=== PATIENT | male | born 1960 | race Caucasian/White ===

== ENCOUNTER 2018-05-22 08:15 | Outpatient (RCR) | payer SELFPAY ==
[2015-11-19 12:24] VITALS: BMI 24.4
[~2018-05-22 08:15] MED LIST: ACE3 PO; ACYC-50 PO; ASPI-1471 PO; CLO10 MT; CLOTRIMAZOLE PO; DOCU-202 PO; DOCU-416 PO; FLUC200T52 PO; FLUC200T56 PO; HYDR2TAB4 PO; IBUP200C71 PO; IBUP600T22 PO; LORA-1456 PO; MULT1TAB54 PO; MULT1TAB64 PO; OMEG500C5 PO; PER PO; PRED50TA22 PO; PROC10TA4 PO; PROM-110 PO
[2018-05-22 08:19] VITALS: BP 138/85
--- NOTE | 2018-05-22 10:24 | Oncology Note ---
EVALUATION~DATE~& TIME: 05/22/2018 PRIMARY CARE PHYSICIAN: None, pt. is self employed has no insurance LAST SEEN BY DR. Watson on 11/22/2017 ACCOMPANIED BY: self Chief complaint: F/u on DLBC lymphoma DIAGNOSIS: stage II Diffuse large B-cell lymphoma Oncology History - August 10, 2015 newly diagnosed diffuse large B cell lymphoma, likely ABC subtype Baseline echocardiogram: Sinus rhythm with frequent premature ventricular complexes Rightward axis Borderline ECG No previous ECGs available Confirmed by OSCAR PETERS ([id number]) on 08/17/2015 9:24:51 PM August 18, 2015 SURGEON: Thomas Jj MD Bone marrow aspirate. 2. Bone core biopsy. 3. Right shoulder lipoma A 10 mm flat Hank-Cameron drain was placed in the cavity left behind after excising the right shoulder lipoma. port placement, unilateral bone marrow biopsy, PET scan in [facility] He completed R-Chop x 6 cycles between 09-01-15 to 12-22-15. with curative intent He completed a PET scan on 01-23-16 which showed a complete response to treatment with no metabolic activity. His spleen had decreased in size and numerous fractures were healing. HPI Mr. Junior is a very pleasant 57 year old man who has stage II Diffuse large B -cell lymphoma, status post 6 cycles of R CHOP in December 2015 . Overall patient reports that he is feeling very well he denies any B- symptoms such as drenching night sweats, fatigue, or palpable lymph nodes. 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 no weight loss or weight gain. Patient informs me that he is currently completing a 14 day course of antibiotics for a tooth extraction procedure planned in the near future, he reports antibiotic being keflex. Living conditions: lives alone, 2 children are his support system Diagnostic tests & Reports Reviewed on [employer] PAST MEDICAL/SURGICAL HISTORY FAMILY~HISTORY: [place] (myocardial infarction) FATHER, and uncle , Age:55 Psychosocial History Social History Patient is single, , has two children a 35 year old daughter and a 32 year old son. Occupational History He works as a contractor independent. He has high-intensity work working 7 days a week. Alcohol History He denies use Smoking History: 1pack day since 27 years old Smoking Status: Yes, less than 1 pack per day Medications and Allergies Reported Medications Aspirin (Aspir 81)81 Mg Tablet.dr81 Mg PO QDAY 02/12/17 Multivitamin (Multi-Vitamin Daily)1 Each Tablet1 Each PO 08/24/15 [place]-3 Fatty Acids (Fish Oil)Unknown Strength Capsule.Unknown Dose PO 08/03/15 Allergies: Coded Allergies: Penicillins (Verified Allergy, Unknown, 11/18/15) SOCIAL /OCCUPATION HISTORY: PREVENTIVE: tetanus vaccine 2017 (reported) -Colonoscopy. Not on file MEDICATIONS: Reported Medications Aspirin (Aspir 81)81 Mg Tablet.dr81 Mg PO QDAY 02/12/17 Multivitamin (Multi-Vitamin Daily)1 Each Tablet1 Each PO 08/24/15 [place]-3 Fatty Acids (Fish Oil)Unknown Strength Capsule.dUnknown Dose PO 08/03/15 Keflex for pre-op preparation tooth extraction 05/22/18 ALLERGIES: Penicillins (Verified Allergy, Unknown, 05/22/18) Review of System CONSTITUTION: denies fevers, sweats, change in appetite, energy, or weight EYES: No blurred vision, no double vision ENT: no mouth soreness, trouble swallowing, neck masses RESPIRATORY: Denies pleuritic pain, dyspnea, wheezing, coughing CARDIOVASCULAR: Denies cardiac type chest pain, palpitations, leg edema GI: denies trouble swallowing, indigestion, abdominal pain, diarrhea, constipation, blood in stool : No blood in the urine, no urinary urgency/frequency, no dysuria, no MUSCULOSKELETAL: no joint pain, no muscle pain, no limited ROM, no back pain NEURO: denies headaches, dizziness, neuropathy, focal weakness SKIN: denies bruising, rashes, changing or suspicious lesions, HEMATOLOGY: denies spontaneous bleeding, denies non-palpable nodes PSYCH: denies mood changes, depression, anxiety Physical Exam Vital Signs Temperature: 97.8 Pulse: 91 BP Systolic: 13 BP Diastolic: 8 Respiratory Rate: 16 O2 SAT: 94% RA O2 Delivery: Height (inches) 69.00 Weight lb: 165 Weight oz: Weight Kg (Venkat): Pain: 0 VITALS PERFORMANCE STATUS: ECOG O- fully active, able to carry on all pre-disease performance w/o restriction GENERAL: pleasant conversant, male in no apparent distress ORAL: mucosa moist without lesions, pharynx not injected EYES: no icterus, no pale conjunctivae, EOMI, PERRLA NECK: supple, no masses, no palpable lymph nodes LUNGS: clear to auscultation bilaterally, breathing, non-labored CVS: regular rate, rhythm, nl s1, s2, no murmurs ABD: normal bowel sounds, soft non tender, non-distended, no hepatomegaly, no splenomegaly, no masses EXTREMITIES: no edema, no cyanosis MUSCULOSKELETAL: grossly normal gait, range of motion stable NEURO: alert, appropriate, motor grossly normal, sensory grossly non focal, and cranial nerves grossly intact NODES: no cervical, supraclavicular, axillary, inguinal adenopathy SKIN: no ecchymosis, petechiae, no open wounds, no itchiness. PSYCH: normal mood and affect, good judgment and insight. Assessment & Plan Mr. Junior is a very pleasant 57 year old man who has stage II Diffuse large B -cell lymphoma, status post 6 cycles of R CHOP in December 2015 . PET scan shows disease in remission. WBC : 8.9; HGB 18.5; ANC5.1; uric acid 6.1; there was no LDH value data. 1. F/u in 6 months with MD/ALEJANDRA with CBC w/diff, CMP. LDH 2. Hypertriglyceridemia labs on 05/15/18 show Tr of 188. TLC teaching provided to patient, to cut amount of cheese, summer sausage, increase fruit, vegetables , and water intake. 3. Patient is due for Colonoscopy, he never had one at 57 years old 4. Monitor Triglycerides levels with next labs 5. patient to call cancer center with any issues or concerns TIME SPENT: 15 minutes > 10 minutes includes but not limited to discussion, counselling and co-ordination~ of care. Discussion with other health care providers, record review, review of lab work, diagnostic tests. Plan discussed extensively with patient. All the questions answered today. Thank you for the opportunity to be involved in the care of Mr. Junior. Billing Level: Return visit 3 BREN JIMENEZ, ONC May 22, 2018 10:23
== END 2018-05-23 09:22 | disposition home or self-care (01) ==
LOC: ONC 08:15
PROVIDERS: ATTEND Nurse Practitioner Family
DX: Z85.72 Personal history of non-Hodgkin lymphomas (principal)
CPT/HCPCS: 99212

== ENCOUNTER 2018-11-17 08:19 | Outpatient (RCR) | payer SELFPAY ==
[2015-11-19 12:24] VITALS: Wt 80.0 kg
[~2018-11-17 08:19] MED LIST changes: +IBUP-136 PO; -IBUP200C71 PO
[2018-11-17 08:27] VITALS: BP 124/79
--- NOTE | 2018-11-17 13:53 | [facility] ONCOLOGY NOTE ---
EVENT DATE: November 17, 2018 CHIEF COMPLAINT/REASON FOR VISIT Mr. Junior is a pleasant 58-year-old gentleman with stage II diffuse large B- cell lymphoma, status post six cycles of R-CHOP, finishing in December 2015 that returns for followup. HISTORY OF PRESENT ILLNESS Jordon returns. He finished R-CHOP chemotherapy in December 2015 and his post- treatment PET scan showed complete remission. He continues to do well. His energy is excellent and he continues to work full-time. He has gained a little bit of weight and has maintained this. No concerning lumps or bumps, fevers, chills, night sweats or other symptoms today. No GI symptoms of concern. PAST MEDICAL HISTORY, PAST SURGICAL HISTORY Diffuse large B cell lymphoma likely stage II, likely ABC subtype, diagnosed July 2015. Treatment with curative intent was R-CHOP x6. ALLERGIES PENICILLIN. MEDICATIONS 1. Aspirin 18 mg daily. 2. Multivitamin. SOCIAL HISTORY The patient is single. He works as a contractor. High intensity work, working seven days a week. He is booked out over a year in advance. FAMILY HISTORY Noncontributory. REVIEW OF SYSTEMS CONSTITUTIONAL: No fevers, chills or weight change that is unintentional. HEENT: No headache or vision changes. CARDIOVASCULAR: No chest pain, palpitations, dyspnea on exertion or edema. RESPIRATORY: No shortness of breath, wheeze or cough. GASTROINTESTINAL: No nausea, vomiting, diarrhea. GENITOURINARY: No dysuria or hematuria. MUSCULOSKELETAL: No weakness or joint pain. PSYCHIATRIC: No anxiety or depression. ENDOCRINE: No heat or cold intolerance. LYMPHATIC: No concerning lumps or bumps. HEMATOLOGIC: No bleeding or other concerns. SKIN: No concerning rashes or other lesions. PHYSICAL EXAMINATION VITAL SIGNS: Blood pressure 124/79, pulse 85, respiratory rate 16, temperature 97.6 Fahrenheit, oxygen saturation 94% on room air. Weight 80 kg, which is stable from last year. Pain 0/10, fatigue 0/10. GENERAL: In stable condition, resting comfortably in the chair. HEENT: Normocephalic, atraumatic. LYMPHATIC: No appreciable cervical, supraclavicular or axillary adenopathy. CARDIOVASCULAR: Regular rate and rhythm. . LUNGS: Clear to auscultation bilaterally. ABDOMEN: Soft, nontender, nondistended. No organomegaly or masses. EXTREMITIES: No clubbing, cyanosis or edema. SKIN: No concerning findings. The remainder of the physical exam is otherwise unremarkable today. IMPRESSION AND PLAN Mr. Junior is a pleasant 58-year-old gentleman with the following: Stage II diffuse large B cell lymphoma, likely aggressive subtype ABC by pathology. He completed six cycles of R-CHOP in December 2015. We would like to see him every six months with labs until year five and then annually after that. Imaging only as needed for concerning findings or history. There are no such findings and so imaging is required this month. I answered all of his questions today. He is doing quite well. Billing: Return visit level 3. Total time 20 minutes, counseling time 15. MTDD
== END 2019-01-05 12:04 | disposition home or self-care (01) ==
LOC: ONC 08:19
PROVIDERS: ATTEND Internal Medicine
DX: C83.30 Diffuse large B-cell lymphoma, unspecified site (principal); D58.2 Other hemoglobinopathies; Z79.82 Long term (current) use of aspirin; Z92.21 Personal history of antineoplastic chemotherapy
CPT/HCPCS: 99212

== ENCOUNTER 2019-05-11 08:30 | Outpatient (RCR) | payer SELFPAY ==
[2015-11-19 12:24] VITALS: BMI 24.4
[2019-05-11 08:33] VITALS: BP 137/80
--- NOTE | 2019-05-12 05:13 | ONCOLOGY FOLLOW UP NOTE ---
EVENT DATE: May 11, 2019 CHIEF COMPLAINT Followup for stage II diffuse large B-cell lymphoma. HISTORY OF PRESENT ILLNESS Patient is a 58-year-old male who is seen today in six-month followup. Overall, he feels well. He has had no B symptomatology, including no night sweats, excessive fatigue, or unexplained weight loss. He continues to work 10 to 12 hours a day, seven days a week, which has been difficult, but he feels he is managing. He denies any other new complaints. ONCOLOGY HISTORY Patient was diagnosed with diffuse large B-cell lymphoma. He completed six cycles of R-CHOP chemotherapy in December 2015. Post-treatment PET scan showed complete remission. PAST MEDICAL HISTORY Diffuse large B-cell lymphoma, July 2015. SOCIAL HISTORY Patient is single. 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 He smokes cigarettes but is trying to cut back. FAMILY HISTORY Noncontributory. MEDICATIONS 1. Aspirin 81 mg daily. 2. Multivitamin. ALLERGIES PENICILLIN. REVIEW OF SYSTEMS A 12-point review of systems is performed and is negative except as stated above. PHYSICAL EXAMINATION VITAL SIGNS: Weight 173 pounds, BP 137/80, P 76, R 16, temperature 98.1, O2 saturation 94%. GENERAL: Patient is a well-developed, well-nourished male in no acute distress. HEAD: Normocephalic, atraumatic. EYES: Sclerae anicteric. MOUTH: Moist mucous membranes. NECK: Supple. No palpable adenopathy. LUNGS: Slightly diminished bilaterally but clear. CARDIOVASCULAR: Heart rate regular, 76 per minute, without murmur, S3 or S4. ABDOMEN: Soft, nontender, with active bowel sounds. No organomegaly. EXTREMITIES: No edema. NEURO: Nonfocal. LABORATORY CBC on 05/07/19 showed a WBC of 7.0, hemoglobin 18.9, hematocrit 56.7, platelets 169,000. CMP was within normal limits. Immunoglobulins showed a slightly diminished IgG of 465. IMPRESSION The patient is a 58-year-old male who was diagnosed with stage II diffuse large B-cell lymphoma in July 2016. He completed chemotherapy with six cycles of R- CHOP in December 2015 with no evidence of recurrence. 1. Lymphoma. No signs or symptoms of disease recurrence. He feels very well and has no B symptomatology. 2. Smoking cessation. We discussed this. He has been trying to cut back. He did not find that the patch was very helpful. 3. Erythrocytosis. Hemoglobin is slightly elevated at 18.9. He relates that he has had to donate blood previously[place]. We will continue to monitor. 4. Follow up in six months for continued care. CBC, CMP, LDH, and immunoglobulins will be drawn before that visit. KISHAN
== END 2019-06-01 14:53 | disposition home or self-care (01) ==
LOC: ONC 08:30
PROVIDERS: ATTEND Internal Medicine
DX: Z85.72 Personal history of non-Hodgkin lymphomas (principal); Z92.21 Personal history of antineoplastic chemotherapy; F17.210 Nicotine dependence, cigarettes, uncomplicated; D75.1 Secondary polycythemia
CPT/HCPCS: 99212

== ENCOUNTER → 2019-06-15 | Outpatient (CLI) | payer SELFPAY ==
[2015-11-19 12:24] VITALS: Wt 76.4 kg
[~2019-06-15] MED LIST changes: +DEXTROSE 5%(*) 100 ML BAG 100 ML IVPB PRN; +LIDOCAINE/SOD BICARB 8.4% SYR ID PRN; +NS(*) 0.9% 100 ML BAG 100 ML IVPB PRN; +cefTRIAXone(*) 1 GM VIAL 1 GM in NS(*) 0.9% 100 ML MINI-BAG 100 ML IVPB ONE
[2019-06-15 14:26] VITALS: BP 122/87
[2019-06-15 15:19] VITALS: BP 109/73
== END ==
LOC: SPU 14:02
PROVIDERS: ATTEND Internal Medicine
DX: K04.7 Periapical abscess without sinus (principal)
CPT/HCPCS: 96365; J0696; J7050